=== PATIENT | male | born 1975 | race Caucasian/White ===

== ENCOUNTER 2016-09-20 13:58 | Emergency (ER) | payer SELFPAY ==
[2016-09-20] MEDS ORDERED: ASPIRIN 325 MG TABLET PO ONE (14:47)
--- NOTE | 2016-09-20 14:49 | ER Document Report ---
ED Medical Screen (RME) - General Chief Complaint: Chest Pain Stated Complaint: CHEST PAIN Time Seen by Provider: 09/20/16 14:42 Mode of Arrival: Ambulatory Information source: Patient TRAVEL OUTSIDE OF THE [place] IN LAST 30 DAYS: No - HPI Patient complains to provider of: CP Onset: This morning - Pt with onset of SSCP at rest earlier this am -- has h.o HTN (stopped meds), DM, COPD, and cig smoker. Has not taken ASA today. - Related Data Allergies/Adverse Reactions: No Known Allergies Allergy (Unverified 09/20/16 14:21) Past Medical History - Social History Chew tobacco use (# tins/day): No Frequency of alcohol use: None Drug Abuse: None - Past Medical History Cardiac Medical History: Reports: Hx Hypertension Pulmonary Medical History: Reports: Hx COPD Neurological Medical History: Reports: Hx Migraine Endocrine Medical History: Reports: Hx Diabetes Mellitus Type 2 Renal/ Medical History: Denies: Hx Peritoneal Dialysis Surgical Hx: Negative - Immunizations Immunizations up to date: Yes Hx Diphtheria, Pertussis, Tetanus Vaccination: No
--- NOTE | 2016-09-20 15:28 | RADIOLOGY REPORT (SQ) ---
EXAM DESCRIPTION: CHEST PA/LAT COMPLETED DATE/TIME: 09/20/2016 3:14 pm REASON FOR STUDY: CP COMPARISON: None. EXAM PARAMETERS: NUMBER OF VIEWS: two views TECHNIQUE: Digital Frontal and Lateral radiographic views of the chest acquired. RADIATION DOSE: NA LIMITATIONS: none FINDINGS: LUNGS AND PLEURA: No opacities, masses or pneumothorax. No pleural effusion. MEDIASTINUM AND HILAR STRUCTURES: No masses or contour abnormalities. HEART AND VASCULAR STRUCTURES: Heart normal size. No evidence for failure. BONES: No acute findings. HARDWARE: None in the chest. OTHER: No other significant finding. IMPRESSION: NO SIGNIFICANT RADIOGRAPHIC FINDING IN THE CHEST. TECHNICAL DOCUMENTATION: JOB ID: [id number] [employer]- All Rights Reserved
[2016-09-20 16:07] LABS: ABSOLUTE BASOPHILS # (AUTO) 0.1 10^3/uL (0.0-0.2); ABSOLUTE EOSINOPHILS # (AUTO) 0.4 10^3/uL (0.0-0.6); ABSOLUTE LYMPHOCYTES (AUTO) 3.3 10^3/uL (0.5-4.7); ABSOLUTE MONOCYTES (AUTO) 0.8 10^3/uL (0.1-1.4); ABSOLUTE NEUT (AUTO) 5.5 10^3/uL (1.7-8.2); BASOPHILS % (AUTO) 0.7 % (0-2); EOSINOPHILS % (AUTO) 4.4 % (0-6); HEMATOCRIT 49.6 % (37.9-51.0); HEMOGLOBIN 16.9 g/dL (13.5-17.0); HGB HCT DIFFERENCE 1.1; LYMPHOCYTES % (AUTO) 32.3 % (13-45); MEAN CORPUSCULAR HEMOGLOBIN 31.3 pg (27.0-33.4); MEAN CORPUSCULAR HGB CONC 34.2 g/dL (32.0-36.0); MEAN CORPUSCULAR VOLUME 92 fl (80-97); MONOCYTES % (AUTO) 8.2 % (3-13); SEGMENTED NEUTROPHILS % (AUTO) 54.4 % (42-78); WHITE BLOOD COUNT 10.1 10^3/uL (4.0-10.5)
[2016-09-20 16:24] LABS: ALANINE AMINOTRANSFERASE 65 U/L (21-72); ALBUMIN 4.8 g/dL (3.5-5.0); ALKALINE PHOSPHATASE 81 U/L (38-126); ANION GAP 16 (5-19); ASPARTATE AMINO TRANSFERASE 44 U/L (17-59); BILIRUBIN,DIRECT 0.4 mg/dL (0.0-0.4); BILIRUBIN,TOTAL 0.6 mg/dL (0.2-1.3); BLOOD UREA NITROGEN 12 mg/dL (7-20); CALCIUM 9.8 mg/dL (8.4-10.2); CARBON DIOXIDE 24 mmol/L (22-30); CHLORIDE 104 mmol/L (98-107); CREATINE KINASE 176 U/L (55-170); CREATININE RESULT 0.72 mg/dL (0.52-1.25); GLUCOSE 84 mg/dL (75-110); POTASSIUM 4.1 mmol/L (3.6-5.0); SODIUM 143.7 mmol/L (137-145); TOTAL PROTEIN 9.2 g/dL (6.3-8.2)
[2016-09-20 16:25] LABS: APPEARANCE,URINE SLIGHTLY-CLOUDY; BILIRUBIN,URINE NEGATIVE (NEGATIVE); GLUCOSE, URINE NEGATIVE (NEGATIVE); KETONES,URINE NEGATIVE (NEGATIVE); LEUKOCYTE ESTERASE,URINE NEGATIVE (NEGATIVE); NITRITE,URINE NEGATIVE (NEGATIVE); PROTEIN,URINE NEGATIVE (NEGATIVE); URINE SPECIFIC GRAVITY 1.016; UROBILINOGEN,URINE NEGATIVE mg/dL (<2.0)
[2016-09-20 16:40] LABS: CREATINE KINASE MB 1.66 ng/mL (<4.55); TROPONIN I < 0.012 ng/mL
[2016-09-20] MEDS ORDERED: ASPIRIN 81 MG TABLET, CHEWABLE PO ONE (17:01)
--- NOTE | 2016-09-20 17:50 | EKG REPORT ---
SEVERITY:- OTHERWISE NORMAL ECG - SINUS RHYTHM BORDERLINE LEFT AXIS DEVIATION : Confirmed by: Kesha Cintron 20-Sep-2016 17:50:03
--- NOTE | 2016-09-20 17:51 | ER Document Report ---
ED General - General Chief Complaint: Chest Pain Stated Complaint: CHEST PAIN Time Seen by Provider: 09/20/16 14:42 Mode of Arrival: Ambulatory Information source: Patient Notes: 41-year-old male history of congestive heart failure and high blood pressure who has not been taking his medications for the past month presents with complaints of lower extremity swelling shortness of breath when he lays flat. Patient denies any fevers or chills nausea vomiting or diarrhea. Patient denies any significant chest pain but does note that when he lays flat he feels a pressure sensation. TRAVEL OUTSIDE OF THE [place] IN LAST 30 DAYS: No - HPI Onset: Other Onset/Duration: Waxing and waning Quality of pain: Pressure Severity: Mild Pain Level: 1 Associated symptoms: Chest pain, Shortness of breath Exacerbated by: Supine Relieved by: Denies Similar symptoms previously: Yes Recently seen / treated by doctor: Yes - Related Data Allergies/Adverse Reactions: No Known Allergies Allergy (Unverified 09/20/16 14:21) Past Medical History - General Information source: Patient - Social History Smoking Status: Current Every Day Smoker Cigarette use (# per day): Yes Chew tobacco use (# tins/day): No Smoking Education Provided: No Frequency of alcohol use: None Drug Abuse: None Family History: None Patient has suicidal ideation: No Patient has homicidal ideation: No - Past Medical History Cardiac Medical History: Reports: Hx Hypertension Pulmonary Medical History: Reports: Hx COPD Neurological Medical History: Reports: Hx Migraine Endocrine Medical History: Reports: Hx Diabetes Mellitus Type 2 Renal/ Medical History: Denies: Hx Peritoneal Dialysis Surgical Hx: Negative - Immunizations Immunizations up to date: Yes Hx Diphtheria, Pertussis, Tetanus Vaccination: No Review of Systems - Review of Systems Notes: REVIEW OF SYSTEMS: CONSTITUTIONAL : Denies fever, chills, or sweats. Denies recent illness. EENT: Denies eye, ear, throat, or mouth pain or symptoms. Denies nasal or sinus congestion or discharge. Denies throat, tongue, or mouth swelling or difficulty swallowing. CARDIOVASCULAR: Admits to chest pain RESPIRATORY: Admits to shortness of breath GASTROINTESTINAL: Denies abdominal pain or distention. Denies nausea, vomiting , or diarrhea. Denies blood in vomitus, stools, or per rectum. Denies black, tarry stools. Denies constipation. GENITOURINARY: Denies difficulty urinating, painful urination, burning, frequency, blood in urine, or discharge. MUSCULOSKELETAL: Denies back or neck pain or stiffness. Denies joint pain or swelling. SKIN: Denies rash, lesions or sores. HEMATOLOGIC : Denies easy bruising or bleeding. LYMPHATIC: Denies swollen, enlarged glands. NEUROLOGICAL: Denies confusion or altered mental status. Denies passing out or loss of consciousness. Denies dizziness or lightheadedness. Denies headache. Denies weakness or paralysis or loss of use of either side. Denies problems with gait or speech. Denies sensory loss, numbness, or tingling. Denies seizures. PSYCHIATRIC: Denies anxiety or stress. Denies depression, suicidal ideation, or homicidal ideation. ALL OTHER SYSTEMS REVIEWED AND NEGATIVE. Dictation was performed using [employer] voice recognition software PHYSICAL EXAMINATION: GENERAL: Well-appearing, well-nourished and in no acute distress. HEAD: Atraumatic, normocephalic. EYES: Pupils equal round and reactive to light, extraocular movements intact, sclera anicteric, conjunctiva are normal. ENT: Nares patent, oropharynx clear without exudates. Moist mucous membranes. NECK: Normal range of motion, supple without lymphadenopathy LUNGS: Breath sounds clear to auscultation bilaterally and equal. No wheezes rales or rhonchi. HEART: Regular rate and rhythm without murmurs ABDOMEN: Soft, nontender, nondistended abdomen. No guarding, no rebound. No masses appreciated. Musculoskeletal: Normal range of motion, no pitting or edema. No cyanosis. NEUROLOGICAL: Cranial nerves grossly intact. Normal speech, normal gait. Normal sensory, motor exams PSYCH: Normal mood, normal affect. SKIN: Warm, Dry, normal turgor, no rashes or lesions noted. Physical Exam - Vital signs Vitals: Pulse Ox 98 09/20/16 16:37 Course - Re-evaluation Re-evalutation: 09/20/16 19:24 pt noted to have a negative cardiac workup, he is not having what appears to be cardiac chest pain but in fact has pain when he lays flat which I believe is secondary to mild fluid overload. Patient does admit to lower extremity edema, he does have small what appears to be bug bites all throughout which are healing and there is no cellulitic component. Refilled all the patient's home medications have insisted that he see a primary care physician and the threat analyst, patient states she will do so. Very strict return precautions provided to the patient After performing a Medical Screening Examination, I estimate there is LOW risk for RUPTURED ESOPHAGUS, PNEUMOTHORAX, PULMONARY EMBOLISM, ACUTE CORONARY SYNDROME, OR THORACIC AORTIC DISSECTION, thus I consider the discharge disposition reasonable. I have reevaluated this patient multiple times and no significant life threatening changes are noted. The patient and I have discussed the diagnosis and risks, and we agree with discharging home with close follow-up. We also discussed returning to the Emergency Department immediately if new or worsening symptoms occur. We have discussed the symptoms which are most concerning (e.g., bloody sputum, worsening pain or shortness of breath) that necessitate immediate return. - Vital Signs Vital signs: Temp Pulse Resp BP Pulse Ox 22 H 156/99 H 95 09/20/16 17:31 09/20/16 18:01 09/20/16 18:01 - Laboratory Result Diagrams: 09/20/16 15:55 09/20/16 15:55 Laboratory results interpreted by me: 09/20/16 15:55 Creatine Kinase 176 H Total Protein 9.2 H - Diagnostic Test Radiology reviewed: Image reviewed, Reports reviewed - EKG Interpretation by Me EKG shows normal: Sinus rhythm, [place], Intervals, QRS Complexes Discharge - Discharge Clinical Impression: SOB (shortness of breath), Bilateral lower extremity edema Chest pain Qualifiers: Chest pain type: unspecified Qualified Code(s): R07.9 - Chest pain, unspecified Condition: Stable Disposition: HOME, SELF-CARE Instructions: Chest Pain of Unclear Cause ([facility]) Prescriptions: Carvedilol 3.125 mg PO BID #60 tablet Hydrochlorothiazide 25 mg PO DAILY #30 tablet Lisinopril 10 mg PO DAILY #30 tablet Forms: Return to Work Referrals: PABLO GIPSON MD [ACTIVE STAFF] - Follow up tomorrow LUZ MARINA LOCKHART MD [NO LOCAL MD] - Follow up tomorrow
[2016-09-20 18:20] VITALS: BP 156/99
== END 2016-09-20 18:20 | disposition home or self-care (01) ==
LOC: ER 13:58
DX: R07.89 Other chest pain (principal); I11.0 Hypertensive heart disease with heart failure; I50.9 Heart failure, unspecified; T50.906A Underdosing of unspecified drugs, medicaments and biological substances, initial encounter; Z91.14 Patient's other noncompliance with medication regimen; J44.9 Chronic obstructive pulmonary disease, unspecified; R06.02 Shortness of breath; R60.0 Localized edema; E10.9 Type 1 diabetes mellitus without complications; F17.210 Nicotine dependence, cigarettes, uncomplicated
CPT/HCPCS: 36415; 71020; 80053; 81001; 82550; 82553; 83880; 84484; 85025; 93005; 93010; 99285